=== PATIENT | female | born 1995 | race Caucasian/White ===

== ENCOUNTER 2023-10-09 16:07 | Emergency (ER) | payer BC, SELFPAY ==
[2023-10-09 16:14] VITALS: BP 111/45; PULSE 67; TEMP 36.8; O2SAT 98; BMI 26.7
--- NOTE | 2023-10-09 16:26 | ECG_ITS ---
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
--- NOTE | 2023-10-09 16:27 | ED_ITS ---
HPI HPI - General Adult General Chief complaint: Dizziness Stated complaint: DIZZINESS Time Seen by Provider: 10/09/23 16:14 Source: patient Mode of arrival: walk-in Limitations: no limitations History of Present Illness HPI narrative: Patient presents to ED for near syncope. She was at work and she started to get lightheaded and felt like she was going to pass out so she sat down and put her head down and it did not really improve. She then got in front of a fan but she was still feeling lightheaded and dizzy so she came into the ER. It lasted for about 30 minutes that she felt lightheaded. Prior to getting to work she did eat a full [employer] meal with a large iced frappe which she said is a very sugary drink and she does not normally drink things like that. She denies any drug or alcohol ingestion and she is alert and oriented in no acute distress.She denies . She is spotting but denies heavy vaginal bleeding or blood in the stool. She starts a new job tomorrow so she wanted to come get checked out to make sure everything was okay. Related Data Home Medications ?Medication ?Instructions ?Recorded ?Confirmed atomoxetine 25 mg capsule 25 mg PO DAILY 10/09/23 10/09/23 lamotrigine 100 mg tablet 100 mg PO DAILY 10/09/23 10/09/23 lurasidone 60 mg tablet 60 mg PO DAILY 10/09/23 10/09/23 mirtazapine 15 mg tablet 15 mg PO BEDTIME 10/09/23 10/09/23 Allergies Allergy/AdvReac Type Severity Reaction Status Date / Time No Known Drug Allergies Allergy Verified 10/09/23 16:19 Opioid HPI Opioid Management Most Recent Opioid Data: No Data to Display Review of Systems ROS Status of ROS 10 or more systems reviewed and unremark able except as noted in history and below Exam Narrative Exam Narrative: Time Seen: [] Vital Signs: [Per nurse's notes.] General: [Alert] Skin: [Warm, dry, no rash.] Head: [Normocephalic, atraumatic.] Neck: [Supple, trachea midline.] Eye: [Pupils are equal, round and reactive to light, extraocular movements are intact, normal conjunctiva.] Ears, nose, mouth and throat: oral mucosa moist. Cardiovascular: [Regular rate and rhythm, no murmur.] Respiratory: [Lungs are clear to auscultation, respirations are non-labored, breath sounds are equal.] Chest wall: [No tenderness, no deformity.] Gastrointestinal: [Soft, nontender, non distended, normal bowel sounds.] MSK: 5 out of 5 muscle strength x 4 extremities no calf pain or edema Lymphatics: [No lymphadenopathy.] Psychiatric: [Cooperative, appropriate mood & affect.] Neurological: [Alert and oriented to person, place, time, and situation, no focal neurological deficit observed.] Constitutional Vital Signs, click to edit/add: Last Vital Signs Temp 98.2 F 10/09/23 16:14 Pulse 67 10/09/23 16:14 Resp 16 10/09/23 16:14 BP 111/45 L 10/09/23 16:14 Pulse Ox 98 10/09/23 16:14 O2 Del Method Room Air 10/09/23 16:14 Course Vital Signs Vital signs: Vital Signs Temperature 98.2 F 10/09/23 16:14 Pulse Rate 67 10/09/23 16:14 Respiratory Rate 16 10/09/23 16:14 Blood Pressure 111/45 L 10/09/23 16:14 Pulse Oximetry 98 10/09/23 16:14 Oxygen Delivery Method Room Air 10/09/23 16:14 Temperature 98.2 F 10/09/23 16:14 Pulse Rate 67 10/09/23 16:14 Respiratory Rate 16 10/09/23 16:14 Blood Pressure 111/45 L 10/09/23 16:14 Pulse Oximetry 98 10/09/23 16:14 Oxygen Delivery Method Room Air 10/09/23 16:14 Medical Decision Making [facility] Narrative Medical decision making narrative: Patient's labs and EKG are nonacute. Her hemoglobin is just slightly low at 10 may be consistent with iron deficiency. I told patient to get in touch with her family doctor To follow-up about her slight anemia. She denies blood in the stool or heavy vaginal bleeding. Return to ED if worsening symptoms. Otherwise follow-up with your doctor. Differential Diagnosis Differential Diagnosis: Anemia, electrolyte abnormality, cardiac arrhythmia Medical Records Medical records reviewed: Yes I reviewed the patient's medical records Lab Data Lab results reviewed: Yes I reviewed the patient's lab results Labs: Lab Results 10/09/23 10/09/23 Range/Units 16:31 16:38 WBC 8.7 (4.0-11.0) 10^3/uL RBC 5.11 (4.20-5.40) 10^6/uL Hgb 10.0 L (12.0-16.0) g/dL Hct 35.3 L (36.0-48.0) % MCV 69.1 L (81.0-99.0) fL MCH 19.6 L (26.7-34.0) pg MCHC 28.3 L (29.9-35.2) g/dL RDW 15.6 H (11.0-15.0) % Plt Count 372 (150-450) 10^3/uL MPV 9.5 (9.5-13.5) fL Neut % (Auto) 68.7 (43.0-75.0) % Lymph % (Auto) 23.0 (20.5-60.0) % [place] % (Auto) 4.8 (1.7-12.0) % Eos % (Auto) 2.3 (0.9-7.0) % Baso % (Auto) 0.7 (0.2-2.0) % Neut # (Auto) 6.0 (1.4-6.5) 10^3/uL Lymph # (Auto) 2.0 (1.2-3.8) 10^3/uL [place] # (Auto) 0.4 (0.3-0.8) 10^3/uL Eos # (Auto) 0.2 (0.0-0.7) 10^3/uL Baso # (Auto) 0.1 (0.0-0.1) 10^3/uL Abs Immat Gran (auto) 0.04 H (0.00-0.03) 10^3/uL Imm/Tot Granulo (auto) 0.5 (0.0-0.5) % Sodium 139 (136-145) mmol/L Potassium 3.5 (3.5-5.1) mmol/L Chloride 103 (98-107) mmol/L Carbon Dioxide 27.8 (21.0-32.0) mmol/L Anion Gap 11.7 BUN 9.0 (7.0-18.0) mg/dL Creatinine 0.75 (0.55-1.02) mg/dL Est GFR ( Amer) >60 (>=60) Est GFR (Non-Af Amer) >60 (>=60) BUN/Creatinine Ratio 12.0 Glucose 80 (74-106) mg/dL Calcium 8.9 (8.5-10.1) mg/dL Total Bilirubin 0.2 (0.2-1.0) mg/dL AST 14 L (15-37) U/L ALT 17 (14-59) U/L Alkaline Phosphatase 74 (46-116) U/L Total Protein 7.4 (6.4-8.2) g/dL Albumin 3.9 (3.4-5.0) g/dL Globulin 3.5 g/dL Albumin/Globulin Ratio 1.1 Urine Color Yellow (YELLOW) Urine Clarity Clear (CLEAR) Urine pH 6.0 (5.0-9.0) Ur Specific [place] >=1.030 A (1.005-1.025) Urine Protein 30 A (NEG/TRACE) mg/dL Urine Glucose (UA) Negative (NEGATIVE) mg/dL Urine Ketones Negative (NEGATIVE) mg/dL Urine Occult Blood Negative (NEGATIVE) Urine Nitrite Negative (NEGATIVE) Urine Bilirubin Negative (NEGATIVE) Urine Urobilinogen 0.2 (0.2-1.0) EU/dL Ur Leukocyte Esterase Small A (NEGATIVE) Urine HCG, Qual Negative (NEGATIVE) ECG Data Attestation: I personally reviewed and interpreted this ECG as follows: Interpretation: EKG INTERPRETATION Time: []1637 Rate: []61 Rhythm: _ []Normal sinus rhythm ST segments: _ [] T waves: _ [] Ectopy: _ [] P wave/VT interval: _ [] QRS interval: _ [] QT interval: _ [] Comparison: _ [] Comparison EKG date: [] Performed by: [self]No acute ST elevation or depression Discharge Plan Discharge Stand Alone Forms: Portal Instructions Chief Complaint: Dizziness Clinical Impression: Near syncope Patient Disposition: Home, Self-Care Time of Disposition Decision: 17:13 Mode of Transportation: Private Vehicle Prescriptions / Home Meds: No Action mirtazapine 15 mg tablet 15 mg PO BEDTIME lamotrigine 100 mg tablet 100 mg PO DAILY atomoxetine 25 mg capsule 25 mg PO DAILY lurasidone 60 mg tablet 60 mg PO DAILY Print Language: Irish Referrals: Physician,Non-Staff, [Physician] - 1 week
[2023-10-09 16:59] LABS: Basophils Absolute Auto 0.1 10^3/uL (0.0-0.1); Basophils Percent Auto 0.7 % (0.2-2.0); Eosinophils Absolute Auto 0.2 10^3/uL (0.0-0.7); Eosinophils Percent Auto 2.3 % (0.9-7.0); Hematocrit 35.3 % (36.0-48.0); Immature Granulocytes Abs Auto 0.04 10^3/uL (0.00-0.03); Immature Granulocytes Pct Auto 0.5 % (0.0-0.5); Mean Corpuscular HGB Conc 28.3 g/dL (29.9-35.2); Mean Corpuscular Hemoglobin 19.6 pg (26.7-34.0); Mean Corpuscular Volume 69.1 fL (81.0-99.0); Mean Platelet Volume 9.5 fL (9.5-13.5); Monocytes Absolute Auto 0.4 10^3/uL (0.3-0.8); Monocytes Percent Auto 4.8 % (1.7-12.0); Neutrophils Percent Auto 68.7 % (43.0-75.0); Platelet Count 372 10^3/uL (150-450); Red Blood Count 5.11 10^6/uL (4.20-5.40); Red Cell Distribution Width 15.6 % (11.0-15.0); White Blood Count 8.7 10^3/uL (4.0-11.0)
[2023-10-09 17:00] LABS: Bilirubin Urine NEGATIVE (NEGATIVE); Blood Urine NEGATIVE (NEGATIVE); Clarity Urine CLEAR (CLEAR); Color Urine YELLOW (YELLOW); Glucose Urine UA NEGATIVE (NEGATIVE); Ketones Urine NEGATIVE (NEGATIVE); Leukocyte Esterase Urine SMALL (NEGATIVE); Nitrite Urine NEGATIVE (NEGATIVE); Protein Urine 30 mg/dL (NEG/TRACE); Specific Gravity Urine >=1.030 (1.005-1.025); Urobilinogen Urine 0.2 EU/dL (0.2-1.0)
[2023-10-09 17:07] LABS: Alanine Aminotransferase 17 U/L (14-59); Albumin Globulin Ratio 1.1; Albumin Level 3.9 g/dL (3.4-5.0); Alkaline Phosphatase 74 U/L (46-116); Anion Gap 11.7; Aspartate Amino Transferase 14 U/L (15-37); Bilirubin Total 0.2 mg/dL (0.2-1.0); Calcium 8.9 mg/dL (8.5-10.1); Carbon Dioxide 27.8 mmol/L (21.0-32.0); Chloride 103 mmol/L (98-107); Estimated GFR (African America >60 (>=60); Estimated GFR (Non-African Ame >60 (>=60); Globulin 3.5 g/dL; Glucose 80 mg/dL (74-106); Potassium 3.5 mmol/L (3.5-5.1); Sodium 139 mmol/L (136-145); Total Protein 7.4 g/dL (6.4-8.2)
[2023-10-09 17:07] LABS: HCG Qualitative Urine* NEGATIVE (NEGATIVE); Urine Microscopic Indicated YES
[2023-10-09 17:14] LABS: RBC Urine 0-2 #/HPF (0-2); WBC Urine 0-2 #/HPF (NONE SEEN)
[2023-10-09 17:15] LABS: Bacteria Urine NONE SEEN #/HPF (NONE SEEN); Cast Seen? NONE SEEN #/LPF (NONE SEEN); Crystals Seen? None Seen #/HPF (None Seen); Mucus Urine SMALL (NONE SEEN); Squamous Epithelial Cell Urine FEW #/LPF (NONE/RARE)
[2023-10-09 17:25] VITALS: BP 110/88; PULSE 88; O2SAT 98
== END 2023-10-09 17:26 | disposition home or self-care (01) ==
PROVIDERS: Emergency Provider Emergency Medicine; PCP Family Medicine
DX: R55 Syncope and collapse (principal); Z79.899 Other long term (current) drug therapy
CPT/HCPCS: 36415; 80053; 81001; 84703; 85025; 93005; 99285